=== PATIENT | female | born 1945 | race Caucasian/White ===

== ENCOUNTER 2017-10-25 13:26 | Inpatient (IN) | payer MEDICARE ==
[2017-10-25] MEDS ORDERED: ONDANSETRON HCL IV 4 MG/2 ML VIAL IV ONE (13:55)
[2017-10-25] MEDS ORDERED: 0.9 % SODIUM CHLORIDE 1,000 ML BAG IV ONE ×2 (13:55→16:52)
--- NOTE | 2017-10-25 13:55 | Emergency Department Record ---
History of Present Illness - General Chief Complaint: Abdominal Pain Stated Complaint: ABD PAIN Time Seen by Provider: 10/25/17 13:44 Source: Patient Mode of Arrival: Ambulatory Limitations: No limitations - History of Present Illness Initial Comments: The patient is here due to LLQ AP for 2 days. She has had nausea but no recent vomiting. She also denies any fever, chills, back pain, or dysuria. The patient also denies any diarrhea but actually feels mildly constipated. She has no hx of similar issues and has no hx of Diverticulitis. MD Complaint: Abdominal pain Onset/Timin -: Days(s) Location: LLQ Radiation: L flank Migration to: L Flank Severity: Moderate - Related Data Home Medications Medication Instructions Recorded Confirmed Last Taken Lisinopril 10 mg PO DAILY 10/25/17 10/25/17 1 Day Ago ~10/24/17 Simvastatin [Zocor] 10 mg PO DAILY 10/25/17 10/25/17 1 Day Ago ~10/24/17 Tramadol HCl [Ultram] 50 mg PO Q6H 10/25/17 10/25/17 1 Day Ago ~10/24/17 Allergies Allergy/AdvReac Type Severity Reaction Status Date / Time Penicillins Allergy ALTERED Verified 10/25/17 13:44 MENTAL STATUS Travel Screening - Travel/Exposure Within Last 30 Days Have you traveled within the last 30 days?: No - Travel/Exposure Within Last Year Have you traveled outside the [place] in the last year?: No - Additonal Travel Details Have you been exposed to anyone with a communicable illness?: No - Travel Symptoms Symptom Screening: None Review of Systems Constitutional: Denies: Chills, Fever Eyes: Denies: Eye discharge ENT: Denies: Congestion Respiratory: Denies: Cough, Dyspnea Past Medical History - SOCIAL HISTORY Smoking Status: Former smoker Alcohol Use: None Drug Use: None - RESPIRATORY Hx Respiratory Disorders: No - CARDIOVASCULAR Hx Hypertension: Yes - NEURO Hx Neuro Disorders: No - GI Hx Diverticulitis: Yes - Hx Genitourinary Disorders: No - ENDOCRINE Hx Endocrine Disorders: No - PSYCH Hx Psych Problems: No - HEMATOLOGY/ONCOLOGY Hx Hematology/Oncology Disorders: No Family Medical History Any Significant Family History?: Yes Physical Exam - General General Appearance: Alert, Cooperative, No acute distress - Head Head exam: Atraumatic, Normocephalic, Normal inspection - Eye Eye exam: Normal appearance, PERRL - ENT Throat exam: Normal inspection. negative: Tonsillar erythema, Tonsillar exudate - Neck Neck exam: Normal inspection, Full ROM. negative: Tenderness - Respiratory Respiratory exam: Normal lung sounds bilaterally. negative: Respiratory distress - Cardiovascular Cardiovascular Exam: Regular rate, Normal rhythm, Normal heart sounds - GI/Abdominal GI/Abdominal exam: Soft, Tenderness (There is significant LLQ tenderness to palpation.). negative: Rebound, Rigid - Extremities Extremities exam: Normal inspection, Full ROM, Normal capillary refill. negative: Tenderness Course Vital Signs 10/25/17 13:43 Temperature 98.4 F Pulse Rate [ 85 Pulse Ox Probe] Respiratory 18 Rate Blood Pressure 139/80 [Left Arm] Pulse Ox 96 - Reevaluation(s) Reevaluation #1: The patient is doing much better at this time. She is resting much more comfortably and the pain is much improved. 10/25/17 15:13 Reevaluation #2: The patient is doing well now and denies any new issues. She does not want any more pain medicines but on exam her abdomen is still very tender. Due to the fact the CT does demonstrate possible ischemic colitis we will admit the patient to the hospital for further eval. 10/25/17 17:10 Reevaluation #3: The patient is doing better at this time. Due to the fact the CT does demonstrate the Sigmoid abnormality I do feel we will need to admit the patient. I did discuss the case with Dr. Singh and he does agree to the plan to admit here at [facility]. I also did discuss the case with Dr. Fry and he accepts the patient for admission. 10/25/17 17:57 Medical Decision Making - Data Complexity MDM Data: Labs Ordered and/or Reviewed, X-Ray Ordered and/or Reviewed - Lab Data Result diagrams: 10/25/17 13:55 10/25/17 13:52 - Radiology Data Radiology results: Report reviewed (CT: Diffuse circumferential sigmoid wall thickening. Consistent with Cdiff or ischemic colitis.) Disposition Disposition: Admit Clinical Impression: Diverticulitis Disposition: Still a Patient at [facility] Decision to Admit: Admit from ER Decision to Admit Date: 10/25/17 Decision to Admit Time: 17:58 Accepting Physician: Lynette Time Discussed w/Accepting Physician: 17:59 Condition: (2) Stable Forms: Patient Portal Access Time of Disposition: 17:59 Quality - Quality Measures Quality Measures: N/A - Blood Pressure Screening View Details: Yes Does Patient Have Any of the Following: No Blood Pressure Classification: Hypertensive Reading Systolic Measurement: 159 Diastolic Measurement: 62 Screening for High Blood Pressure: < Pre-Hypertensive BP, F/U Documented > [ [id number]] Pre-Hypertensive Follow-up Interventions: Referral to alternative/primary care provider.
[2017-10-25] MEDS ORDERED: HYDROMORPHONE HCL 1 MG/ML SYRINGE IVP ONE ×2 (13:56→18:50)
[2017-10-25 14:45] LABS: BASO % 0.1 % (0-6); EOS % 0.4 % (0-6); GRAN % 78.5 % (47-80); HEMATOCRIT 40.5 % (35.0-47.0); HEMOGLOBIN 13.4 gm/dl (11.6-16.0); LYMPH % 16.5 % (16-45); MEAN CELL VOLUME 88.6 fl (81-97); MEAN CORPUSCULAR HEMOGLOBIN 29.3 pg (27-33); MEAN CORPUSCULAR HGB CONC 33.1 g/dl (32-36); MEAN PLATELET VOLUME 11.3 fl (7.4-10.4); MONO % 4.5 % (0-9); PLATELET COUNT 360 K/uL (130-400); RED BLOOD COUNT 4.57 M/uL (3.80-5.40); RED CELL DISTRIBUTION WIDTH 13.4 % (11.5-14.5); WHITE BLOOD COUNT W/O DIFF 11.2 K/uL (4.2-12.2)
[2017-10-25 14:55] LABS: BLOOD UREA NITROGEN 16 mg/dL (8-23)
[2017-10-25 14:56] LABS: CREATININE 0.4 mg/dL (0.5-0.9); EST GLOMERULAR FILTRATION RATE > 60 mL/min; TOTAL PROTEIN 7.3 g/dL (6.6-8.7)
[2017-10-25 14:58] LABS: GLUCOSE,RANDOM 103 mg/dL (74-109)
[2017-10-25 15:01] LABS: ALBUMIN 4.1 g/dL (4.0-5.0); ALKALINE PHOSPHATASE 90 U/L (35-104); ALT/SGPT 12 U/L (<33); AST/SGOT 21 U/L (10.0-35.0); BILIRUBIN,DIRECT < 0.2 mg/dL (0-0.3); LIPASE 21 U/L (13-60)
[2017-10-25 15:34] LABS: URINE APPEARANCE CLEAR; URINE BILIRUBIN NEGATIVE (NEGATIVE); URINE BLOOD NEGATIVE (NEGATIVE); URINE COLOR YELLOW; URINE GLUCOSE (UA) NEGATIVE (NEGATIVE); URINE KETONE TRACE (NEGATIVE); URINE LEUKOCYTE ESTERASE NEGATIVE (NEGATIVE); URINE NITRITE NEGATIVE (NEGATIVE); URINE PROTEIN NEGATIVE (NEGATIVE); URINE UROBILINOGEN 0.2 E.U./dL (0.20 - 1.00)
[2017-10-25] MEDS ORDERED: ERTAPENEM SODIUM 1 G in 0.9 % SODIUM CHLORIDE 100ML 100 ML IVPB ONE (16:41)
[2017-10-25] MEDS ORDERED: ERTAPENEM SODIUM 1 G in 0.9 % SODIUM CHLORIDE 100ML 100 ML IVPB SCH (19:58)
[2017-10-25] MEDS ORDERED: HYDROMORPHONE HCL 1 MG/ML SYRINGE IVP PRN (19:58)
[2017-10-25] MEDS ORDERED: ONDANSETRON HCL IV 4 MG/2 ML VIAL IVP PRN (19:58)
[2017-10-25] MEDS: 0.9 % SODIUM CHLORIDE 1000ML 1,000 ML IV PRN (21:58)
[2017-10-25] MEDS: ACETAMINOPHEN 500 MG TABLET PO PRN (23:47)
[2017-10-26] MEDS: ACETAMINOPHEN 500 MG TABLET PO PRN (06:06)
[2017-10-26 06:14] LABS: BASO % 0.1 % (0-6); EOS % 0.9 % (0-6); GRAN % 67.6 % (47-80); HEMATOCRIT 34.5 % (35.0-47.0); HEMOGLOBIN 11.2 gm/dl (11.6-16.0); LYMPH % 26.7 % (16-45); MEAN CELL VOLUME 88.9 fl (81-97); MEAN CORPUSCULAR HGB CONC 32.5 g/dl (32-36); MEAN PLATELET VOLUME 10.7 fl (7.4-10.4); MONO % 4.7 % (0-9); PLATELET COUNT 300 K/uL (130-400); RED BLOOD COUNT 3.88 M/uL (3.80-5.40); RED CELL DISTRIBUTION WIDTH 13.4 % (11.5-14.5); WHITE BLOOD COUNT W/O DIFF 8.6 K/uL (4.2-12.2)
[2017-10-26 06:21] LABS: MEAN CORPUSCULAR HEMOGLOBIN 28.8 pg (27-33)
[2017-10-26 07:10] LABS: BLOOD UREA NITROGEN 8 mg/dL (8-23); CREATININE 0.4 mg/dL (0.5-0.9); EST GLOMERULAR FILTRATION RATE > 60 mL/min; GLUCOSE,RANDOM 80 mg/dL (74-109)
[2017-10-26] MEDS: 0.9 % SODIUM CHLORIDE 1000ML 1,000 ML IV PRN (08:29)
[2017-10-26] MEDS: LISINOPRIL 10 MG TABLET PO SCH (10:36)
[2017-10-26] MEDS: PANTOPRAZOLE SODIUM IV 40 MG VIAL IV SCH (10:36)
--- NOTE | 2017-10-26 12:19 | History & Physical ---
History of Present Illness - Date of Service Date of Service for History & Physical: 10/26/17 - History of Present Illness Admitting Diagnosis: 1. Acute Diverticulitis History of Present Illness: Mrs. Sánchez is a 71 y/o female who came in with 2 week history of nausea and abdominal discomfort on waking up. She says that her symptoms occur jst after getting up in the morning and eventually resolved. Two days ago her symptoms did not resolve and became progressively worse and she began to have a severe, diffuse abdominal pain, 10/10 in severity. She subsequently began having loose, non-bloody bowel movements about 4 episodes. The patient has never had symptoms like this previously and denies constipation, vomiting, weight loss or change in bowel habits. The patient had a colonoscopy 2 years ago in [place] and 2 small benign polyps were found and she was told to follow up in 10 years. On arrival to [facility] the patient's the CT abdomen describes sigmoid thickening consistent with colitis. The patient was admitted and started on IV fluids, clear liquids and pain medication. On examination this morning the patient is much improved and has no pain and has not required any IV pain medication overnight. She has been tolerating liquids and is wanting for diet to be advanced. She has not had any nausea or vomiting. Travel Screening - Travel/Exposure Within Last 30 Days Have you traveled within the last 30 days?: No - Travel/Exposure Within Last Year Have you traveled outside the [place] in the last year?: No - Additonal Travel Details Have you been exposed to anyone with a communicable illness?: No - Travel Symptoms Symptom Screening: None Review of Systems Constitutional: Denies: Chills, Fever Eyes: Denies: Eye discharge ENT: Denies: Congestion Respiratory: Denies: Cough, Dyspnea Past Medical History - SOCIAL HISTORY Smoking Status: Former smoker Alcohol Use: None Drug Use: None - RESPIRATORY Hx Respiratory Disorders: No - CARDIOVASCULAR Hx Hypertension: Yes - NEURO Hx Neuro Disorders: No - GI Hx Diverticulitis: Yes - Hx Genitourinary Disorders: No - ENDOCRINE Hx Endocrine Disorders: No - PSYCH Hx Psych Problems: No - HEMATOLOGY/ONCOLOGY Hx Hematology/Oncology Disorders: No Family Medical History Any Significant Family History?: Yes Hx Cancer: Mother Hx Diabetes: Grandparents Hx Heart Disease: Grandparents H&P Meds/Allergies - Allergies Allergies: Allergies Allergy/AdvReac Type Severity Reaction Status Date / Time Penicillins Allergy ALTERED Verified 10/25/17 13:44 MENTAL STATUS - Home Medications Home Medications Medication Instructions Recorded Confirmed Last Taken Lisinopril 10 mg PO DAILY 10/25/17 10/25/17 1 Day Ago ~10/24/17 Simvastatin [Zocor] 10 mg PO DAILY 10/25/17 10/25/17 1 Day Ago ~10/24/17 Tramadol HCl [Ultram] 50 mg PO Q6H 10/25/17 10/25/17 1 Day Ago ~10/24/17 - Active Medications Active Medications: Current Medications Acetaminophen (Tylenol 500mg Tab) 500 mg PO Q4H PRN PRN Reason: headache Last Admin: 10/26/17 06:06 Dose: 500 mg Hydromorphone HCl (Dilaudid) 0.5 mg IVP Q4HR PRN PRN Reason: Analgesia Sodium Chloride () 1,000 mls @ 100 mls/hr IV .Q10H PRN PRN Reason: LARGE VOLUME IV Last Admin: 10/26/17 08:29 Dose: 100 mls/hr Ertapenem 1 g/ Sodium Chloride 100 mls @ 200 mls/hr IVPB Q24H [facility], [facility]1983 Lisinopril (Zestril) 10 mg PO DAILY [facility] Last Admin: 10/26/17 10:36 Dose: 10 mg Ondansetron HCl (Zofran) 4 mg IVP Q4H PRN PRN Reason: NAUSEA Pantoprazole Sodium (Protonix Iv) 40 mg IV DAILY [facility], [facility]1983 Last Admin: 10/26/17 10:36 Dose: 40 mg Physical Exam - Vital Signs Vital Signs: Vital Signs - Last 24 Hrs Temp Pulse Resp BP Pulse Ox 10/26/17 09:00 97.9 F 64 18 121/79 97 10/26/17 05:00 98.1 F 62 18 136/62 97 10/26/17 00:04 98.1 F 63 18 148/59 98 10/25/17 19:58 97.8 F 63 18 151/79 97 - General General Appearance: Alert, Cooperative, No acute distress Limitations: No limitations - Head Head exam: Atraumatic, Normocephalic, Normal inspection - Eye Eye exam: Normal appearance, PERRL - ENT Throat exam: Normal inspection. negative: Tonsillar erythema, Tonsillar exudate - Neck Neck exam: Normal inspection, Full ROM. negative: Tenderness - Respiratory Respiratory exam: Normal lung sounds bilaterally. negative: Respiratory distress - Cardiovascular Cardiovascular Exam: Regular rate, Normal rhythm, Normal heart sounds - GI/Abdominal GI/Abdominal exam: Soft, Tenderness (There is significant LLQ tenderness to palpation.). negative: Rebound, Rigid - Extremities Extremities exam: Normal inspection, Full ROM, Normal capillary refill. negative: Tenderness Results - Labs Result Diagrams: 10/26/17 06:03 10/26/17 06:03 Labs Last 24 Hours: Laboratory Results - last 24 hr 10/26/17 10/26/17 10/26/17 06:03 06:03 06:03 WBC 8.6 RBC 3.88 Hgb 11.2 L Hct 34.5 L MCV 88.9 MCH 28.8 MCHC 32.5 RDW 13.4 Plt Count 300 MPV 10.7 H Gran % 67.6 Lymphocytes % 26.7 Monocytes % 4.7 Eosinophils % 0.9 Basophils % 0.1 Sodium 144 Potassium 3.7 Chloride 110 H Carbon Dioxide 22.0 Anion Gap 12.0 BUN 8 Creatinine 0.4 L Estimated GFR > 60 Random Glucose 80 Lactic Acid Cancelled 0.8 Calcium 8.5 L VTE H&P Assessment - Risk for VTE Risk for VTE: No Risk Level: Very Low Risk Assessment Date: 10/26/17 Risk Assessment Time: 12:23 VTE Orders Placed or Will Be Placed: No VTE Reason for No Prophylaxis: Not Indicated Plan - Inpatient Certification Inpatient Certification: Admit to inpatient care: Based on my medical assessment, after consideration of patient's risk factors (age, co-morbidities and patient presenting symptoms and acuity), I expect that this patient will remain in the hospital greater than or equal to two midnights and that the services needed warrant inpatient care because: Patient Risk Factors: acute colitis Estimated length of stay: The patient may reasonably be expected to be discharged or transferred to a hospital within 96 hours after admission to [facility]. I certify that my determination is in accordance with my understanding of Medicare requirements for reasonable and necessary inpatient services. - Detailed Diagnosis and Plan (1) Acute colitis Current Visit: Yes Status: Acute Base Code: K52.9 - NONINFECTIVE GASTROENTERITIS AND COLITIS, UNSPECIFIED Comment: - CT abdomen showing inflammation consistent with colitis of the sigmoid colon, Labs WNL - IVF @ 125mL/hr, protonix 40mg IV, Zofran 4mg IV PRN, - advance diet as tolerated. Surgery consult pending. (2) Hypertension Current Visit: Yes Status: Acute Base Code: I10 - ESSENTIAL (PRIMARY) HYPERTENSION Comment: - BP 121/79 - on Lisinopril 10mg QD (3) HLD (hyperlipidemia) Current Visit: Yes Status: Acute Base Code: E78.5 - HYPERLIPIDEMIA, UNSPECIFIED (4) Chronic back pain Current Visit: Yes Status: Acute Base Code: M54.9 - DORSALGIA, UNSPECIFIED; G89.29 - OTHER CHRONIC PAIN (5) DVT prophylaxis Current Visit: Yes Status: Acute Base Code: [id number] - Comment: - pt ambulatory, SCDs while in bed (6) Full code status Current Visit: Yes Status: Acute Base Code: Z78.9 - OTHER SPECIFIED HEALTH STATUS Comment: FULL CODE - Disposition - D/C in am if able to tolerate advancement of diet.
[2017-10-26] MEDS ORDERED: ERTAPENEM SODIUM 1 G in 0.9 % SODIUM CHLORIDE 100ML 100 ML IVPB SCH (17:00)
--- NOTE | 2017-10-26 18:44 | CT SCAN REPORT ---
EXAM: CT SCAN ABDOMEN/PELVIS W CONTRAST HISTORY: ACUTE LEFT LOWER QUADRANT ABDOMINAL PAIN, NAUSEA, AND VOMITING. PRIOR APPENDECTOMY AND HYSTERECTOMY. COMPARISON: None. TECHNIQUE: Contiguous axial images from the lung bases to the symphysic pubis were obtained after the uneventful intravenous administration of 95 mL of Omnipaque-300. Oral contrast was also utilized. FINDINGS: The lung bases are clear. The liver, spleen, kidneys, adrenals, and pancreas are normal. Gallbladder is normal. Visualized loops of small bowel are of normal caliber. There is moderate circumferential wall thickening of the entire sigmoid colon consistent with colitis. Mild to moderate colonic diverticulosis. Severe calcification of the abdominal aorta without aneurysm. The mesenteric vessels are patent. No free intraperitoneal fluid or adenopathy. The urinary bladder is unremarkable. Abdominal wall is unremarkable. No lytic or blastic osseous lesions. IMPRESSION: 1. ACUTE COLITIS OF THE SIGMOID COLON, FOR WHICH INFECTIOUS ETIOLOGY SUCH CLOSTRIDIUM DIFFICILE COLITIS AND ISCHEMIA ARE POSSIBLE. THE MESENTERIC VESSELS ARE PATENT, HOWEVER. 2. COLONIC DIVERTICULOSIS. JOB NUMBER: [id number] [facility]
[2017-10-27] MEDS: 0.9 % SODIUM CHLORIDE 1000ML 1,000 ML IV PRN (05:32)
[2017-10-27] MEDS: PANTOPRAZOLE SODIUM IV 40 MG VIAL IV SCH (09:41)
[2017-10-27] MEDS: LISINOPRIL 10 MG TABLET PO SCH (09:41)
--- NOTE | 2017-10-27 10:42 | Discharge Summary ---
Providers Date of admission: 10/25/17 19:43 Attending physician: Micha Ojeda Physical Exam - Vital Signs Vital Signs: Vital Signs - Last 24 Hrs Temp Pulse Resp BP Pulse Ox 10/27/17 08:38 98.0 F 64 18 153/69 95 10/27/17 05:00 98.1 F 64 18 142/89 95 10/26/17 23:38 98.2 F 71 18 146/73 95 10/26/17 20:43 68 18 10/26/17 20:00 98.8 F 68 18 124/65 97 10/26/17 17:00 98.9 F 65 18 127/62 98 10/26/17 13:00 97.9 F 68 18 123/53 98 - General General Appearance: Alert, Cooperative, No acute distress Limitations: No limitations - Head Head exam: Atraumatic, Normocephalic, Normal inspection - Eye Eye exam: Normal appearance, PERRL - ENT Throat exam: Normal inspection. negative: Tonsillar erythema, Tonsillar exudate - Neck Neck exam: Normal inspection, Full ROM. negative: Tenderness - Respiratory Respiratory exam: Normal lung sounds bilaterally. negative: Respiratory distress - Cardiovascular Cardiovascular Exam: Regular rate, Normal rhythm, Normal heart sounds - GI/Abdominal GI/Abdominal exam: Soft, Tenderness (There is significant LLQ tenderness to palpation.). negative: Rebound, Rigid - Extremities Extremities exam: Normal inspection, Full ROM, Normal capillary refill. negative: Tenderness Hospitalization - Hospitalization Admission Diagnosis: 1. Acute Diverticulitis - Problem List/Discharge Diagnosis (1) Acute colitis Current Visit: Yes Status: Acute Base Code: K52.9 - NONINFECTIVE GASTROENTERITIS AND COLITIS, UNSPECIFIED Comment: - CT abdomen showing inflammation consistent with colitis of the sigmoid colon, Labs WNL - IVF @ 125mL/hr, protonix 40mg IV, Zofran 4mg IV PRN, - advance diet as tolerated. Surgery consult pending. (2) Hypertension Current Visit: Yes Status: Acute Base Code: I10 - ESSENTIAL (PRIMARY) HYPERTENSION Comment: - BP 121/79 - on Lisinopril 10mg QD (3) HLD (hyperlipidemia) Current Visit: Yes Status: Acute Base Code: E78.5 - HYPERLIPIDEMIA, UNSPECIFIED (4) Chronic back pain Current Visit: Yes Status: Acute Base Code: M54.9 - DORSALGIA, UNSPECIFIED; G89.29 - OTHER CHRONIC PAIN (5) DVT prophylaxis Current Visit: Yes Status: Acute Base Code: [id number] - Comment: - pt ambulatory, SCDs while in bed (6) Full code status Current Visit: Yes Status: Acute Base Code: Z78.9 - OTHER SPECIFIED HEALTH STATUS Comment: FULL CODE - Disposition - D/C in am if able to tolerate advancement of diet. - Hospitalization Course Abnormal Labs: Abnormal Lab Results 10/26/17 10/26/17 Range/Units 06:03 06:03 Hgb 11.2 L (11.6-16.0) gm/dl Hct 34.5 L (35.0-47.0) % MPV 10.7 H (7.4-10.4) fl Chloride 110 H (98-107) mmol/L Creatinine 0.4 L (0.5-0.9) mg/dL Calcium 8.5 L (8.8-10.2) mg/dL Condition at Discharge: (2) Stable Discharge Medications - Discharge Medications Home Medications: Ambulatory Orders Lisinopril 10 mg PO DAILY 10/25/17 [Last Taken 1 Day Ago ~10/24/17] Simvastatin [Zocor] 10 mg PO DAILY 10/25/17 [Last Taken 1 Day Ago ~10/24/17] Tramadol HCl [Ultram] 50 mg PO Q6H 10/25/17 [Last Taken 1 Day Ago ~10/24/17] Discharge Plan - Discharge Instructions Activity at Discharge: Resume Usual Activities As Tolerated Diet at Discharge: Low Fat, Low Cholesterol, Other (High Fiber Diet) Additional Instructions: Patient is to follow up with her PCP Dr. Steele in [place] within the week. She is to resume diet as tolerated and medications as prescribed. There are no new scripts to be sent with the patient. Quality Measures - Quality Measures Quality Measures: Advance Directives, Documentation of Current Medications in Medical Record, Elder Maltreatment Screen and Follow-Up Plan, Screening for High Blood Pressure and F/U Documented - Current Medications Quality Measure: Measure #130: Documentation of Current Medications - Blood Pressure Screening Quality Measure: Screening for High Blood Pressure and Follow-Up Documented Blood Pressure Classification: Hypertensive Reading Systolic Measurement: 153 Diastolic Measurement: 69 - Advance Directives Quality Measure: Measure #47: Care Plan Advance Directives Established: No Advance Directives Information Provided To Patient: No Advance Directives on File: No Living Will: Yes Power of Director Of Knowledge Management: Yes Power of Director Of Knowledge Management Name: Carl Sánchez - Elder Abuse Suspicion Index Screening: Elder Abuse Suspicion Index Screening Rely on people for bathing, dressing, shopping, banking, etc: No Prevented from getting food, clothes, medication, etc: No Made to feel shamed or threatened by someone: No Feel afraid, touched in ways not wanted or hurt physically: No Poor eye contact, withdrawn, malnourished, cuts or bruises: No Screening Result: Negative result EASI Reference Information: Berta GÓMEZ, Jose Manuel C, Jenn D, [place] Olvera.Development and validation of a tool to assist physicians identification of elder abuse: The Elder Abuse Suspicion Index (EASI ). Journal of Elder Abuse and Neglect, 2008; 20 (3): 276-300. - Elder Maltreatment Screen Quality Measures: Elder Maltreatment Screen and Follow-Up Plan Elder Maltreatment Screen: <Negative, No Follow-Up Plan Required> [G8734]
== END 2017-10-27 13:25 | disposition home or self-care (01) | DRG 392 ==
LOC: ER 13:26 → MEDSURG 19:43
PROVIDERS: ADMIT Internal Medicine; ATTEND Internal Medicine
DX: K52.9 Noninfective gastroenteritis and colitis, unspecified (principal); I10 Essential (primary) hypertension; E87.5 Hyperkalemia; M54.9 Dorsalgia, unspecified; Z87.891 Personal history of nicotine dependence
CPT/HCPCS: 74177; 80048; 80076; 81003; 83605; 83690; 85025; 96365; 96366; 96375; 99223; 99239; 99285; C9113; J1170; J2405; J7030